=== PATIENT | female | born 1975 | race Two or more races ===

== ENCOUNTER 2024-10-29 13:24 | Emergency (ER) | payer MEDICAID, OTHER ==
[~2024-10-29] VITALS: Ht 154.9 cm; Wt 65.0 kg
--- NOTE | 2024-10-29 16:21 | ED.PDOC ---
LINE ASSIGNER HPI Comments 49 YEAR OLD FEMALE PRESENTS TO THE ED WITH A CHIEF COMPLAINT OF ABSCESS ONSET 2 DAYS. PATIENT STATES SHE BEGAN EXPERIENCING ABSCESS IN GENITAL REGION 2 DAYS AGO, WAS SEEN [facility], WAS SENT TO ED WITH DIAGNOSIS OF BARTHOLIN CYST WITH RECOMMENDATION OF POSSIBLE DRAINAGE. PATIENT STATES SHE EXPERIENCED A BARTHOLIN CYST ABOUT 3 YEARS AGO, WAS TREATED WITH ANTIBIOTICS. PATIENT NOTICED PAIN HAS WORSEN TODAY, SHE IS NOT ABLE TO SLEEP OR SIT DOWN DUE TO PAIN. DENIES ANY PMHX. DENIES DYSURIA, HEMATURIA, ABDOMINAL PAIN, NAUSEA, VOMITING, FEVER, CHILLS. NO OTHER SYMPTOMS OR MODIFYING FACTORS PRESENT AT THIS TIME. Chief Complaint: Abscess Time Seen by MD: 16:00 Reviewed Notes: Medications, Allergies Allergies: Coded Allergies: NO KNOWN ALLERGIES (Unverified , 10/29/24) Information Source: Patient Mode of Arrival: Ambulatory Timing: Days Prehospital treatment: None Severity: Moderate Vaginal Discharge: None Vaginal Lesions: None Last Consensual [place]: Unknown History of: Bartholin Cyst Blood Type: Unknown Symptoms of Possible : None Associated Signs and Symptoms: Other (abscess) Past Medical History PAST MEDICAL HISTORY: Denies Surgical History: Denies all surgeries BRICK PITCHER History: No Pertinent BRICK PITCHER History Family History Family History: Unknown Social History Smoker: Non-Smoker Alcohol: Denies ETOH Use Drugs: Denies Drug Use Lives In: Home Genitourinary: reports: pain, others (abscess) Physical Exam General Appearance: No Apparent Distress, Normal HEENT: Normal ENT Inspection, Pharynx Normal, TMs Normal Neck: Full Range of Motion, Non-Tender, Normal, Normal Inspection Respiratory: Chest Non-Tender, Lungs Clear, No Accessory Muscle Use, No Respiratory Distress, Normal Breath Sounds Cardiovascular: No Edema, No JVD, No Murmur, No Gallop, Normal Peripheral Pulses, Regular Rate/Rhythm Breast Exam: Deferred Gastrointestinal: No Organomegaly, Non Tender, No Pulsatile Mass, Normal Bowel Sounds, Soft Genitalia: Other (3 cm abscess on RT Bartholin gland, tender to touch with no drainage noted ) Pelvic: Deferred Rectal: Deferred Extremities: No calf tenderness, Normal capillary refill, Normal inspection, Normal range of motion, Non-tender, No pedal edema Musculoskeletal : Apperance: Normal Neurologic: Alert, color tester II-XII nml as Tested, No Motor Deficits, Normal Affect, Normal Mood, No Sensory Deficits Cerebellar Function: Normal Reflexes: Normal Skin: Dry, Normal Color, Warm Lymphatic: No Adenopathy Was a procedure done? Was a procedure done?: Yes Sedation Sedation?: No Bartholin Cyst Indication: Bartholin Cyst Anesthetic: Lidocaine Prep: Betadine, Saline, Wound Cleanser Wound: Incised, Irrigated, Packed Informed consent obtained: Yes Risks/benefits/alt described: Yes Differential Diagnosis (BRICK PITCHER) Vaginal Bleeding: N/A Mass / Lesion: Perianal Abscess, Subcutaneous Abscess, Vaginitis - Bacterial, Vaginitis - Herpetic, Vaginitis - Trichomonas X-Ray, Labs, Meds, VS Vital Signs Date Time Temp Pulse Resp B/P (MAP) Pulse Ox O2 Delivery O2 Flow Rate FiO2 10/29/24 13:55 98.3 102 16 113/60 (77) 97 Lab Test 10/29/24 15:10 Range/Units Urine Color Yellow Yellow Urine Clarity Turbid H Clear Urine pH 5.0 5.0-9.0 Urine Specific [place] 1.028 1.001-1.035 Urine Protein Negative Negative Urine Ketones 2+ H Negative Urine Blood Negative Negative /uL Urine Nitrite Negative Negative Urine Bilirubin Negative Negative Urine Urobilinogen Normal Negative mg/dL Urine Leukocyte Esterase 2+ Negative /uL Urine RBC 3 0 - 4 /hpf Urine Microscopic WBC 4 0-5 /HPF Urine Squamous Epithelial Cells Mod <5 /hpf Urine Bacteria Many H None Seen /hpf Urine Mucus Few None Seen Urine Glucose Normal Normal mg/dL X-Ray, Labs, Meds, VS Comment Imaging: X-rays and CT scans were reviewed and interpreted by this provider, imaging shows no fractures and no pathological disease. Pending radiology review. Laboratory: Labs reviewed and interpreted by this provider. No significant abnormalities noted. Patient has prior medical visits reviewed. Med reconciliation performed Vital signs reviewed Time of 1ST Reevaluation: 16:30 Reevaluation 1ST: Unchanged Patient Education/Counseling: Diagnosis, Treatment, Prognosis, Need For Follow Up (Follow up in two days for wound check) Family Education/Counseling: No Family Present Departure 1 Departure Time of Disposition: 17:02 Impression: Primary Impression: Bartholin's gland abscess Disposition: HOME / SELF CARE / HOMELESS Condition: Fair e-Prescriptions Ibuprofen Micronized (Ibuprofen) 800 Mg Tab 800 MG PO TID PRN, #30 TAB Prov: VIOLETTE INGRAM 10/29/24 Cephalexin Monohydrate (Cephalexin) 500 Mg Cap 1 CAP PO QID for 10 Days, #40 CAP Prov: VIOLETTE INGRAM 10/29/24 Discharged With: Self Comments Patient advised she will need to follow up in two days for repacking. Critical Care Note Critical Care Time?: No Stability Stability form required: No Heart Score Heart Score: Heart Score Response (Comments) Value History N/A 0 EKG N/A 0 Age N/A 0 Risk Factors N/A 0 Troponin N/A 0 Total 0 I personally scribed for VIOLETTE INGRAM CONVENTIONS RESERVATIONIST ([email or web address]) on 10/29/24 at 16:21. Electronically submitted by Florinda Montanez ([email or web address]). I personally scribed for VIOLETTE INGRAMP ([email or web address]) on 10/29/24 at 16:54. Electronically submitted by Florinda Montanez ([email or web address]). VIOLETTE INGRAM Oct 29, 2024 16:21
[2024-10-29 16:37] LABS: Urine Bacteria MANY /hpf (None Seen); Urine Blood Negative /uL (Negative); Urine Clarity Turbid (Clear); Urine Color Yellow (Yellow); Urine Mucus FEW (None Seen); Urine Protein, UAD Negative (Negative); Urine Specific Gravity 1.028 (1.001-1.035); Urine Squamous Epithelial Cell MOD /hpf (<5); Urine Urobilinogen Normal (Negative); Urine WBC 4 /HPF (0-5)
[2024-10-29] MEDS ORDERED: IBUP-1455 PO (17:04)
[2024-10-29] MEDS ORDERED: CEPH500C PO (17:04)
[2024-10-29 17:23] VITALS: BP 96/54; PULSE 105; RESP 18; TEMP 98.3; O2SAT 95
== END 2024-10-29 17:24 | disposition home or self-care (01) ==
LOC: ER 13:24
DX: N75.1 Abscess of Bartholin's gland (principal)
CPT/HCPCS: 56420; 81001